=== PATIENT | male | born 1990 | race Caucasian/White ===

== ENCOUNTER 2019-11-09 17:17 | Emergency (ER) | payer OTHER ==
[~2019-11-09] VITALS: Ht 165.1 cm; Wt 59.9 kg
[2019-11-09] MEDS ORDERED: FLEXERIL PO (18:50)
[2019-11-09] MEDS ORDERED: IBUPROFEN 800800 M1 PO (18:50)
[2019-11-09 19:12] VITALS: BP 135/86
== END 2019-11-09 19:12 | disposition home or self-care (01) ==
LOC: M.ERS 17:17
DX: S16.1XXA Strain of muscle, fascia and tendon at neck level, initial encounter (principal); S29.012A Strain of muscle and tendon of back wall of thorax, initial encounter; V89.2XXA Person injured in unspecified motor-vehicle accident, traffic, initial encounter; Y92.89 Other specified places as the place of occurrence of the external cause; Y93.89 Activity, other specified; Y99.8 Other external cause status